=== PATIENT | female | born 1990 | race Caucasian/White ===

== ENCOUNTER → 2021-02-20 08:15 | Outpatient (CLI) | payer BC, SELFPAY ==
--- NOTE | ~2021-02-20 | MMUS_ITS ---
EXAMINATION: US breast RT complete, MM diagnostic chrissy BI w betty HISTORY: Right tender breast lump at 6 - 9:00 for 2 weeks TECHNIQUE: The examination was initiated with the ordered right breast ultrasound examination, which generated significant findings as detailed below, leading to the performance of the bilateral diagnos tic mammography examination ML, MLO and craniocaudal 3-D tomosynthesis images of both breasts were performed and synthetic 2-D im ages were generated. CAD analysis was submitted and interpreted. High resolution right breast ultraso und was performed. COMPARISON: None BREAST PARENCHYMAL COMPOSITION: The breasts are heterogeneously dense, which may obscure small masses . FINDINGS: MAMMOGRAPHIC FINDINGS: There are extensive abnormal amorphous microcalcifications involving at least one quarter of the righ t breast, particularly the lower outer quadrant. There are calcifications are suspicious for ductal c arcinoma in situ and/or ductal carcinoma. No suspicious mass or architectural distortion, skin thickening or retraction is detected ULTRASOUND: Right breast 3:00 1 cm from nipple: 3.4 x 3.9 mm sonolucency with through transmission consistent wit h simple cyst Right breast 7-9:00: There is focal ill-defined hypoechogenicity with prominent vascularity on color flow imaging. There are numerous stippled microcalcifications. The findings are suspicious for extens alistair microcalcifications. Diagnostic mammogram was performed. IMPRESSION: 1. Extensive suspicious amorphous microcalcifications of the right breast involving particularly the lower outer quadrant, suspicious for ductal carcinoma and ductal carcinoma in situ 2. Ultrasound-guided biopsy is recommended BI-RADS category 4, suspicious findings. Dr. Narayanan telephoned the report and biopsy recommendation on 02/20/20[address] Jay Gallardo 's voicemail. Reviewed, dictated and finalized at location A. IMPRESSION: 1. Extensive suspicious amorphous microcalcifications of the right breast invol ving particularly the lower outer quadrant, suspicious for ductal carcinoma and ductal carcinoma in situ 2. Ultrasound-guided biopsy is recommended BI-RADS category 4, suspicious findings. Dr. Narayanan telephoned the report and biopsy recommendation on 02/20/2021 at [address] Jay Gallardo's voicemail.
== END ==
PROVIDERS: Visit Provider Obstetrics & Gynecology
DX: N63.10 Unspecified lump in the right breast, unspecified quadrant (principal); R92.8 Other abnormal and inconclusive findings on diagnostic imaging of breast
CPT/HCPCS: 76641; 77062; 77066; G0279

== ENCOUNTER 2021-03-08 10:32 | Outpatient (CLI) | payer BC, SELFPAY ==
--- NOTE | ~2021-03-08 | MMUS_ITS ---
EXAMINATION: US breast biopsy RT w image, MM post biopsy invasive RT DATE: 03/08/2021 11:48 (accession [id number]), 03/08/2021 12:01 (accession [id number]) INDICATION: Mass and calcifications of the lower-outer right breast. Ultrasound-guided core biopsy is requested to evaluate for malignancy. TECHNIQUE AND FINDINGS: The risks and potential benefits of the procedure were discussed with the patient including bleeding and infection. A time out was performed. The skin of the right breast was prepared and draped in usua l sterile fashion. 1% lidocaine was used for superficial anesthesia. 1% lidocaine with epinephrine wa s used for deep anesthesia. A vacuum-assisted biopsy gun needle was advanced through to the outer edge of the region of interest from an inferolateral approach utilizing sonographic guidance. A total of four tissue core samples we re obtained through the lesion. A tissue marker clip was then placed at the biopsy site. Hemostasis w as achieved. A sterile bandage was applied. The patient tolerated procedure well and there was no evidence of immediate complication. The patient was given verbal instructions to return to the Emergency Department in the event of severe breast pa in or rapid breast enlargement. A two view right breast mammogram was obtained to document tissue mar ker clip placement. IMPRESSION: 1. Successful ultrasound-guided vacuum-assisted biopsy of right breast mass with tissue marker placem ent. Reviewed, dictated and finalized at location D. IMPRESSION: 1. Successful ultrasound-guided vacuum-assisted biopsy of right breast mass wit h tissue marker placement.
== END 2021-03-08 10:33 | disposition home or self-care (01) ==
PROVIDERS: PCP Family Medicine; Visit Provider Surgery
DX: R92.8 Other abnormal and inconclusive findings on diagnostic imaging of breast (principal); C50.511 Malignant neoplasm of lower-outer quadrant of right female breast
CPT/HCPCS: 19083; 88305; 88342; A4648

== ENCOUNTER 2021-03-29 10:51 | Outpatient (CLI) | payer BC, SELFPAY ==
--- NOTE | ~2021-03-29 | MR_ITS ---
EXAMINATION: MR breast BI wo/w con INDICATION: Ductal carcinoma in situ of the right breast TECHNIQUE: Axial VIBRANT pre and dynamic post contrast, Sagittal VIBRANT post contrast, Axial T2 STIR ASSET COMPARISON: None CONTRAST: Multihance, 11 cc BREAST COMPOSITION: Heterogeneous fibroglandular tissue FINDINGS: RIGHT BREAST: There is minimal background parenchymal enhancement. The right breast is small compared to the left. There is regional nonmass enhancement involving a 6.1 x 3.6 x 4.1 cm portion of the pre dominantly lower-outer breast with some extension into the upper outer quadrant. Enhancement extends posteriorly to the pectoralis muscle. No pathologically enlarged lymph nodes are identified. LEFT BREAST: There is minimal, mild, moderate, marked background parenchymal enhancement. No abnormal enhancement is present after contrast administration. No pathologically enlarged axillary or interna l mammary lymph nodes are identified. IMPRESSION: 1. Regional nonmass enhancement predominantly involving the lower-outer quadrant of the right breast, with some extension into the upper outer quadrant, consistent with known malignancy. BI-RADS category 6, known biopsy-proven malignancy. Reviewed, dictated and finalized at location A. IMPRESSION: 1. Regional nonmass enhancement predominantly involving the lower-outer quadran t of the right breast, with some extension into the upper outer quadrant, consi stent with known malignancy. BI-RADS category 6, known biopsy-proven malignancy.
[2021-03-29 11:27] LABS: Estimated Glomerular Filt Rate > 60
== END 2021-03-29 10:52 | disposition home or self-care (01) ==
LOC: ANHIMG 10:54
PROVIDERS: PCP Family Medicine; Visit Provider Surgery
DX: C50.911 Malignant neoplasm of unspecified site of right female breast (principal)
CPT/HCPCS: 77049; A9577; C8908